=== PATIENT | female | born 1940 | race Caucasian/White ===

== ENCOUNTER 2017-07-30 21:42 | Emergency (ER) | payer OTHER, SELFPAY ==
[2017-07-30 21:57] VITALS: BP 205/98; PULSE 77; RESP 16; TEMP 36.7; O2SAT 100; BMI 20.9
--- NOTE | 2017-07-30 22:20 | DI.RAD.S_ITS ---
PROCEDURE: XR ACUTE ABDOMEN SERIES INDICATIONS: Abdominal pain, vomiting TECHNIQUE: One view chest and two views of the abdomen were acquired. COMPARISON: [facility], , ABDOMEN ACUTE SERIES, 09/11/2016, 0:20. FINDINGS: Surgical changes and devices: None. Chest: Lungs are clear. Heart size is normal. No pleural effusions. No pneumoperitoneum. Abdomen: Bowel gas pattern is normal. There are nonspecific scattered air-fluid levels No suspicious calcifications. Visualized solid organ contours appear normal. Bones: No suspicious bony lesions. Lateral curvature of the spine. IMPRESSION: No bowel obstruction. If clinically indicated, continued surveillance with abdominal series radiographs could be performed. Nonspecific scattered air-fluid levels. This raises the possibility of enteritis; please correlate clinically No free air. Dictated by: Larry Sewell M.D. on 07/31/2017 at 7:18 Approved by: Larry Sewell M.D. on 07/31/2017 at 7:20
[2017-07-30] MEDS: ONDANSETRON 4 MG/2 ML INJ IV (22:53)
[2017-07-30] MEDS: SODIUM CHLORIDE 0.9% 1,000 ML 1000 ML IV (22:53)
--- NOTE | 2017-07-30 23:11 | PC.NURSE ---
nausea and dry heaving without emesis following start of bowel prep for scope today, denies pain/bloody stools/fever/chills or other sx, amb ind with steady gait, abd soft/nontender
[2017-07-30 23:16] LABS: Add Manual Diff / Slide Review NO; Basophils Percent Auto 0.8 % (0-2); Eosinophils Percent Auto 0.6 % (2-4); Hematocrit 41.1 % (36-46); Hemoglobin 14.5 g/dL (12.0-16.0); Lymphocytes Percent Auto 14.7 % (25-40); Mean Corpuscular HGB Conc 35.2 % (30-36); Mean Corpuscular Volume 88.1 fL (80-100); Monocytes Percent Auto 6.8 % (3-14); Neutrophils Absolute Auto 4300 /uL (3000-5900); Neutrophils Percent Auto 77.1 % (50-75); Platelet Count 237 X10^3/uL (150-400); Red Blood Cell Count 4.66 X10^6/uL (4.0-5.2); Red Cell Distribution Width 12.8 % (11.6-14.8); White Blood Cell Count 5.6 X10^3/uL (4.5-11.0)
[2017-07-30 23:26] LABS: Alanine Aminotransferase 28 IU/L (9-52); Albumin 4.5 g/dL (3.5-5.0); Albumin Globulin Ratio 1.4 (1.0-2.8); Alkaline Phosphatase 70 U/L (38-126); Aspartate Aminotransferase 27 IU/L (14-36); BUN Creatinine Ratio 23.3 (6-22); Bilirubin Total 1.3 mg/dL (0.2-1.3); Blood Urea Nitrogen 14 mg/dL (7-17); Calcium 9.8 mg/dL (8.4-10.2); Carbon Dioxide 24 mmol/L (22-32); Chloride 102 mmol/L (98-107); Estimated Glomerular Filt Rate > 60.0 mL/min (>60); Globulin 3.3 g/dL (1.7-4.1); Glucose 98 mg/dL (80-110); HEMOLYSIS < 15 (0-50); Potassium 2.9 mmol/L (3.4-5.1); Sodium 141 mmol/L (137-145); Total Protein 7.8 g/dL (6.3-8.2)
[2017-07-30] MEDS: POTASSIUM CHLORIDE 20 MEQ/15 ML UDC 40 MEQ PO (23:42)
--- NOTE | 2017-07-30 23:58 | ED.NAVMDI ---
HPI - Nausea/Vomiting/Diarrhea General Chief complaint: Nausea/Vomiting/Diarrhea Stated complaint: DEHYDRATION,NAUSEA Source: patient Mode of arrival: ambulatory Limitations: no limitations History of Present Illness HPI Narrative: Patient presents to the emergency department this evening after developing significant nausea soon after consuming a portion of her bowel prep for a colonoscopy tomorrow. The colonoscopy is a routine 10 year colonoscopy, not to pursue any ongoing problems. She did not actually vomit but was just severely nauseated. She did have 1 bowel movement just prior to her arrival which was all clear liquids with no formed stool. She denies any abdominal pain nor fever or chills MD complaint: nausea and vomiting Onset (ago): hour(s) Description of Diarrhea: watery Associated Abdominal Pain: No Associated symptoms: denies other symptoms Related Data Home Medications Medication Instructions Recorded Confirmed [CALCIUM] 600 mg PO BID #0 10/13/10 [FISH OIL] Q DAY #0 10/13/10 Previous Rx's Medication Instructions Recorded hydrochlorothiazide 25 mg PO QDAY #90 tab 10/20/16 levothyroxine 0.05 mg PO QAM #90 tab 01/17/17 atenolol 25 mg PO QDAY #90 tab 03/20/17 Allergies Allergy/AdvReac Type Severity Reaction Status Date / Time codeine AdvReac Mild DIZZINESS Verified 07/30/17 22:03 Review of Systems Review of Systems All systems reviewed & are unremarkable except as noted in HPI and below Constitutional Denies chills, Denies fever(s), Denies lethargy and Denies weakness Eyes Denies change in vision, Denies eye discharge, Denies irritation and Denies loss of vision ENT Ears, Nose, Mouth, and Throat: Denies change in voice, Denies neck pain and Denies sore throat Cardiovascular Denies chest pain, Denies irregular heart rhythm, Denies lightheadedness, Denies palpitations, Denies dyspnea, Denies dyspnea on exertion and Denies orthopnea Respiratory Denies cough, Denies dyspnea, Denies dyspnea on exertion and Denies wheezing Gastrointestinal Gastrointestinal: Denies abdominal pain, Denies change in bowel habits, Denies diarrhea, Reports nausea and Denies vomiting Genitourinary Denies hematuria, Denies flank pain, Denies urinary incontinence and Denies urinary urgency Musculoskeletal Denies neck pain Integumentary/Breasts Denies pruritus, Denies erythema, Denies rash and Denies wounds Neurologic Denies confusion, Denies loss of vision and Denies weakness Psychiatric Denies anxiety, Denies confusion, Denies depression, Denies homicidal ideation and Denies suicidal ideation Endocrine Denies palpitations Hematologic/Lymphatic Denies easy bruising Allergic/Immunologic Denies wheezing PFSH Surgical History History of tonsillectomy Status post colonoscopy (07/30/07) Family History Brother Age: 71 Hypertension Brother Age: 71 Hypertension Father CAD (coronary artery disease) Hypertension Heart disease Mother Age: 100 Hypertension Exam Narrative Exam Narrative: Pleasant 77F in no obvious distress. Initial Vital Signs Initial Vital Signs: Vital Signs Temperature 98.0 F 07/30/17 21:57 Pulse Rate 77 07/30/17 21:57 Respiratory Rate 16 07/30/17 21:57 Blood Pressure 205/98 H 07/30/17 21:57 Pulse Oximetry 100 07/30/17 21:57 Const General: cooperative and well developed Nutritional Appearance: well nourished Orientation: alert, awake, oriented x3 and not confused HENMT Head: normocephalic and atraumatic Ears: external ears normal and TM's normal bilaterally Nose: external nose normal and No nasal discharge Face and sinus: sinuses nontender, face symmetric, no sinus tenderness and No dry mucous membranes Mouth: oral mucosae normal and moist mucous membranes Teeth and gingiva: dentition normal Throat: tonsils normal and uvula midline Eyes General: appearance normal, both eyes and all related structures Eyelids: eyelids normal Conjunctivae: conjunctivae normal Sclera: sclerae normal Pupils: PERRL EOM: EOM intact bilaterally Neck Neck: normal visual inspection, trachea midline, No lymphadenopathy, No midline deformity and No JVD Lymphatic: No lymphedema Chest Chest: normal inspection of the chest Resp Effort & Inspection: normal respiratory effort, able to speak in complete sentences, no respiratory distress and no use of accessory muscles Auscultation: clear to auscultation bilaterally, no rales, no rhonchi and no wheezes Cardio Rate: regular rate Rhythm: regular rhythm Heart Sounds: no click, no gallops, no murmurs and no rubs Pulses: normal peripheral pulses GI Inspection: non-distended Palpation: soft, no hepatosplenomegaly, No guarding, No pulsatile mass and No tender Auscultation: normal bowel sounds Back/Spine/Pelvis Back: No CVA tenderness Cervical Spine: cervical ROM normal and No pain with cervical ROM Thoracic/Lumbar Spine: thoracic and lumbar spine normal to inspection Skin General: no rashes or lesions noted, No jaundice and No petechiae Neuro General: alert, oriented x3, gait normal and no focal motor deficits Speech: speech normal Extrem General: full ROM, no clubbing, cyanosis or edema, no pedal edema and no calf tenderness Psych Appearance: well kempt Mental Status: mental status grossly normal Attitude: cooperative Thought Content: normal and suicidality Judgment: judgment good Course Orders Ordered: ED Orders 07/30/17 22:20 XR acute abdomen series Stat 07/30/17 22:42 Complete Blood Count AUTO DIFF Stat Comprehensive Metabolic Panel Stat Discontinued Medications Sodium Chloride (Normal Saline 0.9%) 1,000 mls @ 1,000 mls/hr IV BOLUS ONE Stop: 07/30/17 23:18 Last Infusion: 07/30/17 23:42 Dose: 0 mls/hr Admin: 07/30/17 22:53 Dose: 1,000 mls/hr Ondansetron HCl (Zofran) 4 mg IV NOW ONE Stop: 07/30/17 22:20 Last Admin: 07/30/17 22:53 Dose: 4 mg Ondansetron HCl (Zofran Odt Prepack) 1 bottle MISC SEEINSTR ONE Stop: 07/31/17 00:04 Last Admin: 07/31/17 00:09 Dose: 1 bottle Potassium Chloride (Potassium Chloride) 40 meq PO NOW ONE Stop: 07/30/17 23:35 Last Admin: 07/30/17 23:42 Dose: 40 meq Reevaluation(s) Reevaluation #1: On discharge patient feels complete resolution of symptoms Consultations Consultation #1: Discussed with on-call surgeon, Dr. Peña, whom recommends patient proceed as planned tomorrow Vital Signs - 8 hr 07/31/17 00:15 Temperature 98.0 F Pulse Rate 70 Respiratory Rate 16 Blood Pressure 171/87 H Pulse Oximetry 97 MDM - Nausea/Vomiting/Diarrhea Lab Data Result diagrams: 07/30/17 22:42 07/30/17 22:42 Lab Results 07/30/17 07/30/17 Range/Units 22:42 22:42 WBC 5.6 (4.5-11.0) X10^3/uL RBC 4.66 (4.0-5.2) X10^6/uL Hgb 14.5 (12.0-16.0) g/dL Hct 41.1 (36-46) % MCV 88.1 (80-100) fL MCH 31.0 (26-34) PG MCHC 35.2 (30-36) % RDW 12.8 (11.6-14.8) % Plt Count 237 (150-400) X10^3/uL Neut % (Auto) 77.1 H (50-75) % Lymph % (Auto) 14.7 L (25-40) % [place] % (Auto) 6.8 (3-14) % Eos % (Auto) 0.6 L (2-4) % Baso % (Auto) 0.8 (0-2) % Neut # (Auto) 4300 (1083-4177) /uL Sodium 141 (137-145) mmol/L Potassium 2.9 L (3.4-5.1) mmol/L Chloride 102 (98-107) mmol/L Carbon Dioxide 24 (22-32) mmol/L BUN 14 (7-17) mg/dL Creatinine 0.60 (0.52-1.04) mg/dL Estimated GFR > 60.0 (>60) mL/min BUN/Creatinine Ratio 23.3 H (6-22) Glucose 98 (80-110) mg/dL Calcium 9.8 (8.4-10.2) mg/dL Total Bilirubin 1.3 (0.2-1.3) mg/dL AST 27 (14-36) IU/L ALT 28 (9-52) IU/L Alkaline Phosphatase 70 (38-126) U/L Total Protein 7.8 (6.3-8.2) g/dL Albumin 4.5 (3.5-5.0) g/dL Globulin 3.3 (1.7-4.1) g/dL Albumin/Globulin Ratio 1.4 (1.0-2.8) Discharge Plan Departure Patient Disposition: Home, Self-Care Clinical Impression: Vomiting Discharge Date/Time: 07/31/17 00:17 Interventions: ED Discharge Assessment Last Done: 07/31/17 00:15 Instructions: DI for Vomiting -- Adult Activity Restrictions/Additional Instructions: Proceed to preop tomorrow morning as planned return if worse Prescriptions: No Action [CALCIUM] 600 mg PO BID Qty: 0 RF: 0 [FISH OIL] Q DAY Qty: 0 RF: 0 hydrochlorothiazide 25 MG tablet 25 mg PO QDAY Qty: 90 RF: 3 levothyroxine 50 MCG tablet 0.05 mg PO QAM Qty: 90 RF: 1 atenolol 25 MG tablet 25 mg PO QDAY Qty: 90 RF: 1
[2017-07-31] MEDS: ONDANSETRON 4 MG ODT PREPACK 1 BOTTLE MISC (00:09)
[2017-07-31 00:15] VITALS: BP 171/87; PULSE 70; RESP 16; TEMP 36.7; O2SAT 97
== END 2017-07-31 00:17 | disposition home or self-care (01) ==
PROVIDERS: Emergency Provider Emergency Medicine; Family Provider Family Medicine; PCP Family Medicine
DX: R11.10 Vomiting, unspecified (principal)
CPT/HCPCS: 36591; 74022; 80053; 85025; 96361; 96374; 99283; 99284; J2405

== ENCOUNTER 2017-07-31 07:53 | Day surgery (SDC) | payer OTHER, SELFPAY ==
--- NOTE | 2017-07-31 | PATH_ITS ---
[facility] Accession Number: [id number] . 01 Material submitted: . POLYP @15CM . 02 Diagnosis: Biopsy Colon Polyp at 15 cm: Hyperplastic polyp. MRV/08/02/2017 . 02 Electronically signed: . Navdeep Ayers MD, Pathologist NPI- [id number] . 01 Gross description: . POLYP @15CM: Received in formalin are 2 fragment(s) of alcantar, soft tissue measuring 0.5 x 0.2 x 0.1 cm to 0.3 x 0.3 x 0.2 cm submitted entirely in 1 cassette(s) /TRC /TRC . 02 Pathologist provided ICD-10: K63.5 . 02 CPT . 662422 Performed at: 01 [facility] Located within [facility] [address] [place] [address], [place], [place] [id number] MD Tiago Knox MD Phone: [phone] Performed at: 02 [facility] [address] [place], [place] [id number] MD Geovanni Hoffmann MD Phone: [phone]
[2017-07-31 08:14] VITALS: BP 157/75; PULSE 55; RESP 15; TEMP 36.4; O2SAT 100; BMI 20.9
[2017-07-31] MEDS: SODIUM CHLORIDE 0.9% 1,000 ML 200 ML IV ×2 (08:25→10:51)
--- NOTE | 2017-07-31 08:55 | PM.HP.1 ---
History of Present Illness Chief complaint: colonoscopy 55620 Narrative: Martina Burnett is a 77 year old female The patient is a woman who last had a colonoscopy 10 years ago. No family history of colon cancer and no personal history of polyps. She is here for screening he failed. She only was able to take half the prep. Liquid brown material is coming out. Patient History Medical History History of salivary gland disease (Inactive) Surgical History History of cholecystectomy (Inactive) History of tonsillectomy Status post colonoscopy (07/30/07) Family & Social History Social History: Never drank. Lives with spouse Tobacco & Substance use: Never smoked Meds Home Medications Medication Instructions Recorded Confirmed Type [CALCIUM] 600 mg PO BID #0 10/13/10 07/31/17 History [FISH OIL] Q DAY #0 10/13/10 History hydrochlorothiazide 25 mg PO QDAY #90 tab 10/20/16 07/31/17 Rx levothyroxine 0.05 mg PO QAM #90 tab 01/17/17 07/31/17 Rx atenolol 25 mg PO QDAY #90 tab 03/20/17 07/31/17 Rx Allergies Allergy/AdvReac Type Severity Reaction Status Date / Time codeine AdvReac Mild DIZZINESS Verified 07/30/17 22:03 Review of Systems Review of Systems All systems reviewed & are unremarkable except as noted in HPI and below Cardiovascular Comments: Hypertension Integumentary/Breasts Comments: History of skin cancers no melanoma Endocrine Comments: Hypothyroidism Exam Vital Signs (past 8 hours): Vital Signs - 8 hr 07/31/17 08:14 Temperature 97.6 F Pulse Rate 55 L Respiratory Rate 15 Blood Pressure 157/75 H Pulse Oximetry 100 Pulse Oximetry 100 Oxygen Delivery Method Room Air Narrative Exam Narrative: Operative no apparent distress. Eyes nonicteric. Lungs are clear to auscultation without rales or rhonchi. I regular rate and rhythm without murmur gallop. Abdomen is scaphoid soft nontender without mass. Alert and oriented x3. Assessment & Plan Plan: Plan: I have discussed the procedure and the rationale with the patient including risks of bleeding, perforation which would necessitate a major operation, failure to find remove all lesions and the potential to tattoo. They appeared to understand and wished to proceed. We will 1st give her an enema to see if we can improve her prep.
--- NOTE | 2017-07-31 09:03 | P.HP_ITS ---
History of Present Illness Chief complaint: colonoscopy 60626 Narrative: Martina Burnett is a 77 year old female The patient is a woman who last had a colonoscopy 10 years ago. No family history of colon cancer and no personal history of polyps. She is here for screening he failed. She only was able to take half the prep. Liquid brown material is coming out. Patient History Medical History History of salivary gland disease (Inactive) Surgical History History of cholecystectomy (Inactive) History of tonsillectomy Status post colonoscopy (07/30/07) Family & Social History Social History: Never drank. Lives with spouse Tobacco & Substance use: Never smoked Meds Home Medications Medication Instructions Recorded Confirmed Type [CALCIUM] 600 mg PO BID #0 10/13/10 07/31/17 History [FISH OIL] Q DAY #0 10/13/10 History hydrochlorothiazide 25 mg PO QDAY #90 tab 10/20/16 07/31/17 Rx levothyroxine 0.05 mg PO QAM #90 tab 01/17/17 07/31/17 Rx atenolol 25 mg PO QDAY #90 tab 03/20/17 07/31/17 Rx Allergies Allergy/AdvReac Type Severity Reaction Status Date / Time codeine AdvReac Mild DIZZINESS Verified 07/30/17 22:03 Review of Systems Review of Systems All systems reviewed & are unremarkable except as noted in HPI and below Cardiovascular Comments: Hypertension Integumentary/Breasts Comments: History of skin cancers no melanoma Endocrine Comments: Hypothyroidism Exam Vital Signs (past 8 hours): Vital Signs - 8 hr 3 07/31/17 08:14 Temperature 97.6 F Pulse Rate 55 L Respiratory Rate 15 Blood Pressure 157/75 H Pulse Oximetry 100 Pulse Oximetry 100 Oxygen Delivery Method Room Air Narrative Exam Narrative: Operative no apparent distress. Eyes nonicteric. Lungs are clear to auscultation without rales or rhonchi. I regular rate and rhythm without murmur gallop. Abdomen is scaphoid soft nontender without mass. Alert and oriented x3. Assessment & Plan Plan: Plan: I have discussed the procedure and the rationale with the patient including risks of bleeding, perforation which would necessitate a major operation, failure to find remove all lesions and the potential to tattoo. They appeared to understand and wished to proceed. We will 1st give her an enema to see if we can improve her prep.
[2017-07-31] MEDS: FLEETS ENEMA 1 EACH PR (09:05)
[2017-07-31] MEDS: ONDANSETRON 4 MG/2 ML INJ IV (09:17)
--- NOTE | 2017-07-31 09:24 | PM.PREOP ---
Pre-operative Note Interval Note Pre-op Check: History & Physical exam performed today H&P completed within 30 days and has changed as indicated here:: none ASA Class (for procedural sedation): II
--- NOTE | 2017-07-31 09:48 | PM.OP.ENDO ---
Operative Date/Time/Diagnoses - Date of procedure: 07/31/17 Time of procedure: 09:49 Pre-op diagnosis: Screening kat Post-op diagnosis: other (Diverticulosis throughout the colon. Two very small lesions probably hyperplastic.) Procedure & Clinicians Study performed: Colonoscopy with cold biopsy Same procedure as scheduled: Yes Indications: Screening Surgeon: Jared Lucas Procedure Notes SCOAP/Timeout: Performed Procedure in detail: The patient was placed in the left lateral decubitus position and underwent IV sedation directed by the surgeon consisting of fentanyl and Versed. Digital exam was normal. The scope was inserted and advanced through the rectum into the sigmoid, descending, transverse, and ascending colon. Patient was noted to have pandiverticulosis. The cecum was reached identified by the ileocecal valve and the appendiceal opening. The ileocecal valve was[not] cannulated. The scope was gradually brought out. Polyps were found at 15 cm. These were small and probably hyperplastic.. The scope ultimately was retroflexed in the rectum. The appearance was[consistent with scarring on old hemorrhoids. There was no active ulceration.]. The scope was removed and the patient tolerated the procedure well Scope withdrawal time: 7-1/2 minutes Sedation minutes: 21 Findings: diverticulosis (Banda colonic) and internal hemorrhoids (Scarring on minimal hemorrhoids) Specimen(s): other (Polyps 15 cm) Complications: none Recommendations: Colonscopy in 5 years (If not neoplastic no further colonoscopies for screening) Plan for aftercare: Follow-up by letter Follow up: as needed Disposition: PACU
[2017-07-31 09:50] VITALS: BP 118/66; PULSE 59; RESP 14; TEMP 36.5
[2017-07-31 09:55] VITALS: BP 112/61; PULSE 59; RESP 14; O2SAT 98
[2017-07-31] MEDS: fentaNYL 250 MCG/5 ML INJ IV (09:56)
[2017-07-31 10:01] VITALS: BP 134/74; PULSE 59; RESP 14; TEMP 36.3; O2SAT 98
[2017-07-31 10:09] VITALS: BP 137/75; PULSE 50; RESP 15; TEMP 36.1; O2SAT 98
[2017-07-31] MEDS: PROMETHAZINE 25 MG/ML VIAL 12.5 MG IV (10:40)
[2017-07-31 10:58] VITALS: BP 146/70; PULSE 55; RESP 15; TEMP 36; O2SAT 100
== END 2017-07-31 11:33 | disposition home or self-care (01) ==
PROVIDERS: Family Provider Family Medicine; PCP Family Medicine; Visit Provider Specialist
PROC: 0DJD8ZZ Inspection of Lower Intestinal Tract, Via Natural or Artificial Opening Endoscopic (ICD-10-PCS; CPT 45378; principal; 2017-07-31 09:00)
DX: Z12.11 Encounter for screening for malignant neoplasm of colon (principal); K57.30 Diverticulosis of large intestine without perforation or abscess without bleeding; K63.5 Polyp of colon; I10 Essential (primary) hypertension; E03.9 Hypothyroidism, unspecified
CPT/HCPCS: 45380; 99152; J2405; J2550; J3010

== ENCOUNTER → 2017-10-30 11:28 | Outpatient (CLI) | payer OTHER, SELFPAY ==
--- NOTE | 2017-10-30 | DI.MG.S_ITS ---
BILATERAL DIGITAL SCREENING MAMMOGRAM 3D/2D WITH CAD: 10/30/2017 CLINICAL: Routine screening. Comparison is made to exams dated: 10/23/2016 mammogram, 10/23/2016 mammogram, and 10/16/2016 mammogram - [facility]. The tissue of both breasts is extremely dense, which lowers the sensitivity of mammography. Current study was also evaluated with a Computer Aided Detection (CAD) system. No significant masses, calcifications, or other findings are seen in either breast. There has been no significant interval change. IMPRESSION: NEGATIVE There is no mammographic evidence of malignancy. A 1 year screening mammogram is recommended. This exam was interpreted at Station ID: [id number]. NOTE: For mammograms, a report in lay terms will be sent to the patient. Approximately 15% of breast malignancies will not be visualized mammographically. In the management of a palpable breast mass, a negative mammogram must not discourage biopsy of a clinically suspicious lesion. Electronically Signed By: Cooper sheppard/marce:10/30/2017 16:53:36 letter sent: Normal Exam ACR BI-RADS Category 1: Negative 3341F
== END ==
PROVIDERS: Family Provider Family Medicine; PCP Family Medicine; Visit Provider Family Medicine
DX: Z12.31 Encounter for screening mammogram for malignant neoplasm of breast (principal)
CPT/HCPCS: 77063; 77067

== ENCOUNTER → 2017-11-01 12:24 | Outpatient (CLI) | payer OTHER, SELFPAY | PROVIDERS: Family Provider Family Medicine; PCP Family Medicine; Visit Provider Family Medicine | DX: M81.0 Age-related osteoporosis without current pathological fracture (principal); M85.9 Disorder of bone density and structure, unspecified | CPT/HCPCS: 77080 ==

== ENCOUNTER → 2017-11-19 17:00 | Outpatient (CLI) | payer OTHER, SELFPAY ==
[2017-11-19 17:15] LABS: Add Manual Diff / Slide Review NO; Basophils Percent Auto 1.2 % (0-2); Eosinophils Percent Auto 4.6 % (2-4); Hematocrit 40.6 % (36-46); Hemoglobin 13.9 g/dL (12.0-16.0); Lymphocytes Percent Auto 28.9 % (25-40); Mean Corpuscular HGB Conc 34.3 % (30-36); Mean Corpuscular Hemoglobin 30.6 PG (26-34); Mean Corpuscular Volume 89.3 fL (80-100); Monocytes Percent Auto 9.5 % (3-14); Neutrophils Absolute Auto 3300 /uL (3000-5900); Neutrophils Percent Auto 55.8 % (50-75); Platelet Count 277 X10^3/uL (150-400); Red Blood Cell Count 4.55 X10^6/uL (4.0-5.2); Red Cell Distribution Width 12.6 % (11.6-14.8)
[2017-11-19 17:42] LABS: BUN Creatinine Ratio 31.4 (6-22); Blood Urea Nitrogen 22 mg/dL (7-17); Calcium 10.6 mg/dL (8.4-10.2); Carbon Dioxide 33 mmol/L (22-32); Chloride 102 mmol/L (98-107); Estimated Glomerular Filt Rate > 60.0 mL/min (>60); Glucose 93 mg/dL (80-110); HEMOLYSIS < 15 (0-50); Potassium 3.7 mmol/L (3.4-5.1); Sodium 145 mmol/L (137-145)
== END ==
PROVIDERS: Family Provider Family Medicine; PCP Family Medicine; Visit Provider Specialist
DX: Z01.818 Encounter for other preprocedural examination (principal)
CPT/HCPCS: 36415; 80048; 85025

== ENCOUNTER 2017-11-23 14:15 | Day surgery (SDC) | payer OTHER, SELFPAY ==
[2017-11-20 12:22] VITALS: BMI 21.8
--- NOTE | 2017-11-23 | PATH_ITS ---
[facility] Accession Number: [id number] . 01 Material submitted: . POLYPS AND ENDOMETRIAL CURETTINGS . 02 Diagnosis: Polyps And Endometrial Curettings: Portions of disordered proliferative endometrium; negative for glandular hyperplasia, cytologic atypia, and malignancy. Some tissue fragments demonstrate prominent vessels, suggestive of polyp, if clinical and imaging findings are concordant. BFI/11/26/2017 . 02 Electronically signed: . Ana Chambers MD, Pathologist NPI- [id number] . 01 Gross description: . Received in formalin, labeled polyps / endometrial curettings, are multiple fragments of alcantar-pink, rubbery tissue (7.5 x 3.2 x 1.5 cm in aggregate). Entirely submitted in cassettes A1-A5. ([id number]) /OZO . 02 Pathologist provided ICD-10: N84.0 . 02 CPT . 060075 Performed at: 01 [facility] [address], [place], [place] [id number] MD Tiago Knox MD Phone: [phone] [facility]formed at: 02 [facility] [address] [place], [place] [id number] MD Geovanni Hoffmann MD Phone: [phone]
[2017-11-23] MEDS: LACTATED RINGERS 1,000 ML 42 ML IV (14:32)
[2017-11-23 14:33] VITALS: BP 130/75; PULSE 49; RESP 15; TEMP 36.2; O2SAT 97; BMI 21.8
--- NOTE | 2017-11-23 14:43 | PM.PREOP ---
Pre-operative Note Interval Note Pre-op Check: Yes History & Physical Reviewed by Physician and Yes Exam Performed Changes: No H&P completed within 30 days and has changed as indicated here:: see 11/19/17 out patient note
--- NOTE | 2017-11-23 15:20 | SUR.OPER ---
Lithotomy on padded OR bed, head on pillow, arms secured on padded arm boards at <90 degrees abduction. Legs secured in padded yellow fins stirrups.
[2017-11-23 15:58] VITALS: BP 158/93; PULSE 55; RESP 12; TEMP 36.4; O2SAT 99
--- NOTE | 2017-11-23 15:58 | PM.OP.1 ---
Operative Date/Time/Diagnoses Date of procedure: 11/23/17 Time of procedure: 15:58 Pre-op diagnosis: Postmenopausal bleeding with thickened endometrium on ultrasound Post-op diagnosis: same Procedure & Clinicians Procedure: Hysteroscopy with resection of intracavitary mass and curettage Same procedure as scheduled: Yes Indications: Postmenopausal bleeding and thickened endometrium on ultrasound Surgeon: Treva Machado Click Yes if Unassisted: Yes Anesthesia Type: General Operative Notes Findings: Large intracavitary mass either polyp or more likely a submucous fibroid Closure Type: not applicable Specimen(s): other (Resected mass an uterine curettage) Estimated Blood Loss (mL): 20 Blood products transfused: none Procedure in detail: The patient was brought to the operating room where she underwent general anesthesia. She was placed in low stirrups She was prepped and draped in usual sterile fashion with pulsatile stockings in place and functional, warming in place, no antibiotics indicated. Her bladder was drained with in and out catheter. A single-tooth tenaculum was placed on the anterior lip of the cervix and the uterus dilated to #8 Hegar dilator. The hysteroscope was placed into the uterus with a sorbitol solution running and under constant suction. The resecting loop set at 100 W of cutting was used to resect the fibroid down to the level of the endometrium. A endometrial curettage was performed. The fibroid and the endometrial curettage was sent to pathology. The patient went to recovery room in good condition counts of instruments and sponges were correct. The sorbitol solution I=O approximately 6000 mL. Complications: none Condition: stable Disposition: same day surgery Plan for aftercare: Follow-up in 2 weeks
[2017-11-23 16:03] VITALS: BP 168/86; PULSE 52; RESP 9; O2SAT 100
[2017-11-23 16:08] VITALS: BP 170/85; PULSE 51; RESP 11; TEMP 36.4; O2SAT 100
[2017-11-23 16:20] VITALS: BP 166/84; PULSE 54; RESP 12; TEMP 36.8; O2SAT 100
== END 2017-11-23 16:34 | disposition home or self-care (01) ==
PROVIDERS: Family Provider Family Medicine; PCP Family Medicine; Visit Provider Specialist
PROC: 0UDB8ZZ Extraction of Endometrium, Via Natural or Artificial Opening Endoscopic (ICD-10-PCS; CPT 58558; principal; 2017-11-23 15:30)
DX: N95.0 Postmenopausal bleeding (principal); R93.8 Abnormal findings on diagnostic imaging of other specified body structures; D25.9 Leiomyoma of uterus, unspecified; M85.80 Other specified disorders of bone density and structure, unspecified site; I10 Essential (primary) hypertension; E78.5 Hyperlipidemia, unspecified; E03.9 Hypothyroidism, unspecified; Z79.899 Other long term (current) drug therapy; Z85.828 Personal history of other malignant neoplasm of skin
CPT/HCPCS: 58558; J2405; J2704; J3010

== ENCOUNTER → 2018-05-27 12:03 | Outpatient (CLI) | payer OTHER, SELFPAY ==
[2018-05-27 12:57] LABS: Add Manual Diff / Slide Review NO; Basophils Absolute Auto 100 /uL (0-100); Basophils Percent Auto 1.1 % (0-2); Eosinophils Absolute Auto 100 /uL (0-450); Eosinophils Percent Auto 2.9 % (2-4); Hematocrit 42.5 % (36-46); Hemoglobin 14.7 g/dL (12.0-16.0); Lymphocytes Absolute Auto 1300 /uL (1100-4500); Lymphocytes Percent Auto 24.3 % (25-40); Mean Corpuscular HGB Conc 34.6 % (30-36); Mean Corpuscular Hemoglobin 30.9 PG (26-34); Mean Corpuscular Volume 89.3 fL (80-100); Monocytes Absolute Auto 300 /uL (0-900); Monocytes Percent Auto 6.3 % (3-14); Neutrophils Absolute Auto 3400 /uL (1500-7000); Neutrophils Percent Auto 65.4 % (50-75); Platelet Count 307 X10^3/uL (150-400); Red Blood Cell Count 4.76 X10^6/uL (4.0-5.2); Red Cell Distribution Width 13.1 % (11.6-14.8); White Blood Cell Count 5.2 X10^3/uL (4.5-11.0)
[2018-05-27 13:19] LABS: Erythrocyte Sedimentation Rate 9 MM/HR (0-20)
[2018-05-27 13:39] LABS: Alanine Aminotransferase 21 IU/L (9-52); Albumin 4.6 g/dL (3.5-5.0); Albumin Globulin Ratio 1.5 (1.0-2.8); Alkaline Phosphatase 65 U/L (38-126); Aspartate Aminotransferase 27 IU/L (14-36); BUN Creatinine Ratio 22.5 (6-22); Bilirubin Total 0.6 mg/dL (0.2-1.3); Blood Urea Nitrogen 18 mg/dL (7-17); Calcium 10.2 mg/dL (8.4-10.2); Carbon Dioxide 29 mmol/L (22-32); Chloride 99 mmol/L (98-107); Cholesterol 202 mg/dL (140-199); Estimated Glomerular Filt Rate > 60.0 mL/min (>60); Globulin 3.1 g/dL (1.7-4.1); Glucose 108 mg/dL (80-110); HDL Cholesterol 44 mg/dL (40-60); HEMOLYSIS < 15 (0-50); LDL Cholesterol Calculated 116 mg/dL (<100); Magnesium 2.1 mg/dL (1.6-2.3); Potassium 3.3 mmol/L (3.4-5.1); Sodium 139 mmol/L (137-145); Total Protein 7.7 g/dL (6.3-8.2); Triglycerides 212 mg/dL (35-150)
[2018-05-27 13:42] LABS: C-Reactive Protein Quant < 0.5 mg/dL (<1.0)
[2018-05-27 14:04] LABS: Thyroid Stimulating Hormone 1.88 uIU/mL (0.47-4.68)
== END ==
PROVIDERS: Family Provider Family Medicine; PCP Family Medicine; Visit Provider Family Medicine
DX: R73.09 Other abnormal glucose (principal); E78.2 Mixed hyperlipidemia; I10 Essential (primary) hypertension; N28.9 Disorder of kidney and ureter, unspecified; R89.9 Unspecified abnormal finding in specimens from other organs, systems and tissues; Z13.29 Encounter for screening for other suspected endocrine disorder
CPT/HCPCS: 80053; 80061; 83735; 84443; 85025; 85651; 86140

== ENCOUNTER → 2018-06-05 12:57 | Outpatient (CLI) | payer OTHER, SELFPAY ==
--- NOTE | 2018-06-05 14:06 | DI.MRI.S_ITS ---
PROCEDURE: MR HEAD/BRAIN WO CON INDICATIONS: dizzy TECHNIQUE: Non-contrast axial T1 spin echo, axial T2 fast spin echo, sagittal and axial FLAIR, coronal T2 fast spin echo, axial gradient echo, axial diffusion and ADC through the brain. COMPARISON: None. FINDINGS: Image quality: Excellent. CSF spaces: Ventricles appear symmetric in size and shape. Basal cisterns are patent. No extra-axial fluid collections. Brain: No intracranial bleeds or mass effects. There is cerebral volume loss for age. There are periventricular and deep white matter chronic small vessel ischemic changes. Brainstem appears normal. Diffusion-weighted images show no acute ischemic insults. No chronic ischemic insults. Normal intravascular flow voids are present. 5 mm left frontal hypointensity, likely related to an incidental cavernous angioma. Small, pineal gland cyst, incidentally noted. Skull and face: Calvarial bone marrow is normal in signal. Orbits are normal. Sinuses: Sinuses and mastoids are clear. IMPRESSION: 1. No acute intracranial process. 2. Moderate atrophy and chronic microvascular ischemic changes. Dictated by: Karis Lazo M.D. on 06/05/2018 at 14:03 Approved by: Karis Lazo M.D. on 06/05/2018 at 14:17
== END ==
PROVIDERS: Family Provider Family Medicine; PCP Family Medicine; Visit Provider Family Medicine
DX: R42 Dizziness and giddiness (principal)
CPT/HCPCS: 70551

== ENCOUNTER → 2018-07-09 07:31 | Outpatient (CLI) | payer OTHER, SELFPAY ==
[2018-07-09 10:04] LABS: Alanine Aminotransferase 23 IU/L (9-52); Albumin 4.2 g/dL (3.5-5.0); Albumin Globulin Ratio 1.4 (1.0-2.8); Alkaline Phosphatase 58 U/L (38-126); Aspartate Aminotransferase 23 IU/L (14-36); BUN Creatinine Ratio 24.3 (6-22); Blood Urea Nitrogen 17 mg/dL (7-17); Calcium 10.2 mg/dL (8.4-10.2); Carbon Dioxide 32 mmol/L (22-32); Chloride 100 mmol/L (98-107); Cholesterol 198 mg/dL (140-199); Estimated Glomerular Filt Rate > 60.0 mL/min (>60); Globulin 2.9 g/dL (1.7-4.1); Glucose 81 mg/dL (80-110); HDL Cholesterol 54 mg/dL (40-60); HEMOLYSIS < 15 (0-50); LDL Cholesterol Calculated 126 mg/dL (<100); Potassium 3.8 mmol/L (3.4-5.1); Sodium 141 mmol/L (137-145); Total Protein 7.1 g/dL (6.3-8.2); Triglycerides 88 mg/dL (35-150)
== END ==
PROVIDERS: Family Provider Family Medicine; PCP Family Medicine; Visit Provider Family Medicine
DX: E78.2 Mixed hyperlipidemia (principal)
CPT/HCPCS: 36415; 80053; 80061

== ENCOUNTER → 2018-11-07 12:24 | Outpatient (CLI) | payer OTHER, SELFPAY ==
--- NOTE | 2018-11-07 | DI.MG.S_ITS ---
BILATERAL DIGITAL SCREENING MAMMOGRAM 3D/2D WITH CAD: 11/07/2018 CLINICAL: Routine screening. Comparison is made to exams dated: 10/30/2017 mammogram, 10/16/2016 mammogram, and 10/15/2015 mammogram - [facility]. Of note, there is suboptimal positioning of the bilateral breast in the mediolateral oblique view secondary to patient limitation in mobility to be adequately positioned during image acquisition. The best possible images were obtained. The tissue of both breasts is extremely dense, which lowers the sensitivity of mammography. Current study was also evaluated with a Computer Aided Detection (CAD) system. No significant masses, calcifications, or other findings are seen in either breast. There has been no significant interval change. IMPRESSION: NEGATIVE There is no mammographic evidence of malignancy. A 1 year screening mammogram is recommended. This exam was interpreted at Station ID: [id number]. NOTE: For mammograms, a report in lay terms will be sent to the patient. Approximately 15% of breast malignancies will not be visualized mammographically. In the management of a palpable breast mass, a negative mammogram must not discourage biopsy of a clinically suspicious lesion. Electronically Signed By: Steffen Mccormick M.D. aty/:11/07/2018 16:44:11 letter sent: Normal Exam ACR BI-RADS Category 1: Negative 3341F
== END ==
PROVIDERS: PCP Family Medicine; Visit Provider Family Medicine
DX: Z12.31 Encounter for screening mammogram for malignant neoplasm of breast (principal)
CPT/HCPCS: 77063; 77067

== ENCOUNTER → 2018-12-20 09:48 | Outpatient (CLI) | payer OTHER, SELFPAY ==
--- NOTE | 2018-12-20 09:49 | DI.RAD.S_ITS ---
PROCEDURE: XR CERVICAL SPINE 2V OR 3V INDICATIONS: neck pain TECHNIQUE: 3 view(s) of the cervical spine were acquired. COMPARISON: None. FINDINGS: Bones: No fractures or dislocations to the C7-T1 level. The lateral masses of C1 appear intact on the odontoid view. No suspicious bony lesions. There is trace retrolisthesis of C4 on C5, C5 on C6, trace anterolisthesis of C3 on C4. Moderate disc space narrowing is noted at C4-5 and C5-6. Soft tissues: No prevertebral soft tissue swelling. IMPRESSION: Degenerative changes most notable at C4-5 and C5-6. Dictated by: Karis Lazo M.D. on 12/20/2018 at 16:30 Approved by: Karis Lazo M.D. on 12/20/2018 at 16:31
== END ==
PROVIDERS: PCP Family Medicine; Visit Provider Hospitalist
DX: M54.2 Cervicalgia (principal); M47.812 Spondylosis without myelopathy or radiculopathy, cervical region
CPT/HCPCS: 72040

== ENCOUNTER → 2018-12-24 11:09 | Outpatient (CLI) | payer OTHER, SELFPAY ==
[2018-12-24 14:19] LABS: Thyroid Stimulating Hormone 3.45 uIU/mL (0.47-4.68)
== END ==
PROVIDERS: PCP Family Medicine; Visit Provider Family Medicine
DX: E03.9 Hypothyroidism, unspecified (principal)
CPT/HCPCS: 36415; 84443